=== PATIENT | male | born 1940 | race African-American/Black ===

== ENCOUNTER 2017-04-21 05:10 | Day surgery (SDC) | payer MEDICARE ==
--- NOTE | 2017-04-20 18:02 | Pre-op HX & Phy Repo 2 SIG ---
DATE OF ADMISSION: 04/21/2017 DATE OF SURGERY: 04/21/2017. PREOPERATIVE DIAGNOSIS: Dense vitreous hemorrhage, left eye. BRIEF NOTE: This is the first [facility] admission for this patient, who is a very nice 76-year-old gentleman, who states he started seeing in the vision of the left eye just under a month ago. He was examined and felt to have possibly a venous occlusion, but on examination at our office, this was not seen. He is admitted for vitrectomy to confirm the diagnosis and treat as needed. PAST MEDICAL HISTORY: Remarkable for hypertension and previous heart attack. He is on carvedilol, torsemide, atorvastatin, and isosorbide as well as minoxidil. He is allergic to penicillins. He has had no prior eye surgery. He has had an appendectomy and a previous aortic stent. He does not smoke or drink. PHYSICAL EXAMINATION: Best vision at the time of admission was 20/30 -2 on the right and 20/200 on the left. The pressures were 18. The anterior segments were clear in either eye with normal pupils. There were moderate cataracts. Fundus exam of the right eye appeared normal. The left eye showed a very dense vitreous hemorrhage. The retina could not be seen clearly. An ultrasound showed a posterior vitreous separation on the left with a dense vitreous hemorrhage. The retina appeared attached without masses. ASSESSMENT: Dense vitreous hemorrhage, left eye. PLAN: The plan is to perform a pars plana vitrectomy with exploration, endolaser, and possible Avastin injection if needed. The risks and benefits of surgery gone over the patient including potential for infection, hemorrhage, worsening of the cataract, and remote possibility of loss of the eye. The risk of anesthesia was discussed. The patient understands and consents to the surgery, which will be performed on tomorrow morning. Souleymane Joseph M.D. DR: SONYA JOB#: [id number] CC:
[~2017-04-21] VITALS: Ht 175.3 cm; Wt 59.0 kg
[2017-04-21] VITALS (10 sets, daily range): BP systolic 113–145; BP diastolic 57–76
[2017-04-21] MEDS ORDERED: Vigamox Opth Soln ONE (05:42)
[2017-04-21] MEDS ORDERED: Phenylephrine 2.5% Op Soln ONE (05:42)
[2017-04-21] MEDS ORDERED: Cyclopentolate 1% Opth Sol ONE (05:42)
[2017-04-21] MEDS ORDERED: Flurbiprofen 0.03% Opth Sol 2.5ml ONE (05:43)
[2017-04-21] MEDS: Phenylephrine 2.5% Op Soln LEFT EYE SCH ×3 (05:53→06:17)
[2017-04-21] MEDS: Cyclopentolate 1% Opth Sol LEFT EYE SCH ×3 (05:53→06:17)
[2017-04-21] MEDS: Flurbiprofen 0.03% Opth Sol 2.5ml LEFT EYE SCH ×3 (05:53→06:18)
[2017-04-21] MEDS ORDERED: Pred Forte 1% Opth Susp 1ml LEFT EYE SCH (06:00)
[2017-04-21] MEDS ORDERED: Avastin 10mg Inj IVITRE ONE (06:00)
[2017-04-21] MEDS ORDERED: Gatifloxacin Opth Solution 0.5% LEFT EYE SCH (06:00)
[2017-04-21] MEDS ORDERED: LIPITOR80 MG ORAL (06:03)
[2017-04-21] MEDS ORDERED: ROCATROL0.25 MCG PO (06:03)
[2017-04-21] MEDS ORDERED: CARVEDILOL12.5 MG ORAL (06:03)
[2017-04-21] MEDS ORDERED: LONITEN10 MG PO (06:03)
[2017-04-21] MEDS ORDERED: VITAMIN B122500 MCG PO (06:03)
[2017-04-21] MEDS ORDERED: TORSEMIDE5 MG ORAL (06:03)
[2017-04-21] MEDS ORDERED: METOPROLOL TAR100 M1 ORAL (06:03)
[2017-04-21] MEDS ORDERED: NORCO 5-325 TA1 EAC1 ORAL (06:05)
[2017-04-21] MEDS: Vigamox Opth Soln LEFT EYE SCH ×2 (06:19→06:30)
[2017-04-21] MEDS ORDERED: fentaNYL 100 mcg/2 mL IV ONE (11:00)
[2017-04-21] MEDS ORDERED: NS Irrig 1000ml ONE (11:00)
[2017-04-21] MEDS ORDERED: Midazolam 2mg/2ml Inj ONE (11:00)
[2017-04-21] MEDS ORDERED: Sterile Water Irrig 1000ml IRRIG ONE (11:00)
[2017-04-21] MEDS ORDERED: Propofol 10mg/ml 20ml IV ONE (11:00)
[2017-04-21] MEDS ORDERED: LR 1000ml ONE (11:00)
[2017-04-21] MEDS ORDERED: Lidocaine 1% MPF 10mg/ml 5ml ONE (11:00)
[2017-04-21] MEDS ORDERED: Phenylephrine 10mg/ml Vial ONE (11:00)
--- NOTE | 2017-04-21 11:57 | Anethesia Preoperative Eval ---
Anesthesia Pre-op PMH/ROS General Mallampati Score Class I : Soft palate, uvula, fauces, pillars visible Class II: Soft palate, uvula, fauces visible Class III: Soft palate, base of uvula visible Class IV: Only hard plate visible Anesthesia History: none Family History: no anesthesia problems Allergies: Coded Allergies: PENICILLINS (Verified Allergy, Unknown, 04/19/17) Medications: see eMAR Past Medical History Cardiovascular: Reports: CAD, HTN, arrhythmia Pulmonary: Denies: COPD, NICK, asthma, other Gastrointestinal/Genitourinary: Reports: other - ckd Endocrine: Denies: DM, hypothyroidism, other, steroids HEENT: Reports: other - vitreous hemorrage left eye Hematology/Immune: Denies: DVT, anemia, bleeding disorder, other Musculoskeletal/Integumentary: Denies: DDD, DJD, OA, RA, edema, other PSxH Narrative: s/p cardiac stents Anesthesia Pre-op Phys. Exam Physician Exam Last Vital Signs Date Time Temp Pulse Resp B/P Pulse Ox O2 Delivery O2 Flow Rate FiO2 04/21/17 06:10 98.1 82 20 113/64 100 Room Air Constitutional: NAD Neurologic: CN 2-12 intact Cardiovascular: RRR Respiratory: CTA Gastrointestinal: S/NT/ND Airway Exam Mallampati Score: Class III MO: full ROM: full Dentures: no lower, no upper Anesthesia Pre-op A/P Studies Pre-op Studies: EKG - sr Risk Assessment & Plan Assessment: pt denies any changes in health, denies sob/cp Plan: mac Status Change Before Surgery: No Pre-Antibiotics Drug: none SAMANTHA BOOTHE CRNA Apr 21, 2017 11:57
--- NOTE | 2017-04-21 12:28 | Immediate Post-Op Evaluation ---
Immediate Post-Op Evalulation Immediate Post-Op Evalulation Procedure: pars plana vitrectomy Date of Evaluation: Apr 21, 2017 Time of Evaluation: 12:17 IV Fluids: 500 Blood Pressure Systolic: 110 Blood Pressure Diastolic: 70 Pulse Rate: 81 Respiratory Rate: 14 O2 Sat by Pulse Oximetry: 98 Temperature (Fahrenheit): 97.5 Nausea: No Vomiting: No Complications none Patient Status: awake, reacts, patent Hydration Status: adequate Drug: none JESENIARISAMANTHA JACOB CRNA Apr 21, 2017 12:28
--- NOTE | 2017-04-21 12:29 | 48 Hour Post Anesthesia Eval ---
Post Anesthesia Evaluation Procedure: pars plana vitrectomy Date of Evaluation: Apr 21, 2017 Time of Evaluation: 12:29 Blood Pressure Systolic: 115 0: 80 Pulse Rate: 74 Respiratory Rate: 14 O2 Sat by Pulse Oximetry: 100 Airway: patent Nausea: No Vomiting: No Hydration Status: adequate Cardiopulmonary Status: stable Mental Status/LOC: patient returned to baseline Post-Anesthesia Complications: none Follow-up care needed: N/A SAMANTHA BOOTHE CRNA Apr 21, 2017 12:29
[2017-04-21] MEDS ORDERED: BSS 500ml btl ONE (12:48)
[2017-04-21] MEDS ORDERED: Dexamethasone 4mg/ml vial ONE (12:49)
[2017-04-21] MEDS ORDERED: Tetracaine 0.5% Opth Soln ONE (12:49)
[2017-04-21] MEDS ORDERED: Maxitrol Opth Oint 3.5gm ONE (12:49)
[2017-04-21] MEDS ORDERED: Povidone-Iodine 5% opth solution ONE (12:50)
[2017-04-21] MEDS ORDERED: BSS 15ml BTL ONE (12:50)
[2017-04-21] MEDS ORDERED: Lidocaine 2% MPF 5ml Vial INJ ONE (12:50)
[2017-04-21] MEDS ORDERED: Bupivacaine 0.75% 30ml vial INJ ONE (12:50)
[2017-04-21] MEDS ORDERED: EPINEPHrine 1mg/1ml Amp ONE (12:50)
--- NOTE | 2017-04-22 16:11 | Brief Operative Note ---
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
--- NOTE | 2017-04-22 21:16 | Operative Note - Dictated ---
DATE OF OPERATION: 04/21/2017 PREOPERATIVE DIAGNOSIS: Dense vitreous hemorrhage, right eye. 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 SURGEON: Souleymane Joseph M.D. SPA TECHNICIAN: None. ANESTHESIA: Local with sedation. 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 JUSTIFICATION FOR SURGERY: This is a 76-year-old gentleman noted significant loss of vision in the left eye associated with vitreous hemorrhage. BRIEF NOTE: The patient was brought to the operating room, placed on operating room table in supine position. After a time-out was performed and agreed upon by the staff and initial monitoring secured by anesthesia, retrobulbar and Van Lint blocks were given in the standard way. When the blocks taken effect, he was prepped and draped in normal manner. A lid speculum was inserted to the left eye. Using a 23-gauge trocar system cannulas were placed all except infranasal quadrant. Infusion was secured inferotemporally. Vitrectomy was begun posterior to the lens taking care to avoid contact. A central core vitrectomy was done followed by peripheral vitrectomy leaving a small vitreous skirt. Examination posteriorly showed adherent vitreous and this was gently shaved and removed. A ruptured macroaneurysm was seen along the superotemporal arcade with some prior resorption. The bleed did not extend into the macular center. An area suspicious for branch vein occlusion was seen along the inferonasal arcade. Periphery showed no significant elevation or tears. The endolaser was brought to the eye and a power of 0.3 workman duration 0.2 seconds. A total of 468 lesions were applied covering the aneurysm and the bed of the venous occlusion. Scleral depression was done and no additional peripheral pathology was noted. The superior cannulas were removed from the eye and the wounds there were noted to be self-sealing. The infusion line was also removed and through this cannula Avastin 1.25 mg was injected. The eye was reinflated and this cannula also removed with the wounds here again noted to be self-sealing. Subconjunctival Decadron and gentamicin were then injected and prednisolone, gatifloxacin, and atropine drops instilled as well as Maxitrol ointment. The eye was patched and shielded. The patient was taken to recovery in excellent condition. No complications. Souleymane Joseph M.D. DR: CAROLYNE JOB#: [id number] CC: Souleymane Joseph M.D.; Fax#: [phone]
== END 2017-04-21 14:05 | disposition home or self-care (01) ==
LOC: SUR 05:10
DX: H43.12 Vitreous hemorrhage, left eye (principal); H35.042 Retinal micro-aneurysms, unspecified, left eye; H34.8122 Central retinal vein occlusion, left eye, stable; I25.10 Atherosclerotic heart disease of native coronary artery without angina pectoris; Z95.5 Presence of coronary angioplasty implant and graft; I12.0 Hypertensive chronic kidney disease with stage 5 chronic kidney disease or end stage renal disease; N18.5 Chronic kidney disease, stage 5; I25.2 Old myocardial infarction; N25.81 Secondary hyperparathyroidism of renal origin; I49.9 Cardiac arrhythmia, unspecified; Z88.0 Allergy status to penicillin
CPT/HCPCS: 67039; J0171; J1100; J2250; J2370; J2704; J3010; J3470; J3490; J7120; J9035; 94003; 94150